=== PATIENT | female | born 1955 | race African-American/Black ===

== ENCOUNTER 2021-06-14 16:41 | Emergency (ER) | payer BC, OTHER ==
[~2021-06-14] VITALS: Ht 157.5 cm; Wt 70.0 kg
[2021-06-14 17:15] VITALS: BP 146/77
[2021-06-14] MEDS ORDERED: PROPARACAINE 0.5% OPHTH SOLUTION 15ML BOTTLE. OS ONE (18:15)
[2021-06-14] MEDS ORDERED: FLUORESCEIN OPHTH TEST STRIP. OS ONE (18:15)
--- NOTE | 2021-06-14 19:04 | PHYS DOC ---
Past Medical History Past Surgical History: No Surgical History General Adult EDM: Chief Complaint: EYE PROBLEMS HPI: HPI: Patient is a 65 year old female who presents with 1 day history of left eye pain. Patient states that she wore false eyelashes last night and remove them without issues, however this morning she had pain and watery discharge coming from her eye. She states it feels like there are "rocks in her eye." She denies headache, blind spots, or other visual changes. Patient has no other complaints at this time. Review of Systems: Review of Systems: ROS negative except as mentioned in HPI. Heart Score: C/O Chest Pain: No Current Medications: Current Medications Medications (Trade) Dose Ordered Sig/Armani Start Time Stop Time Status Last Admin Dose Admin Fluorescein Sodium (Ful-Ronel) 1 strip 1X ONCE 06/14/21 18:15 06/14/21 18:18 DC Proparacaine HCl (Alcaine) 1 drop 1X ONCE 06/14/21 18:15 06/14/21 18:18 DC Allergies: Allergies: Allergies Coded Allergies Type Severity Reaction Last Updated Verified No Known Drug Allergies 06/14/21 No Physical Exam: PE: Constitutional: Well developed, well nourished, no acute distress, non-toxic appearance. HENT: Normocephalic, atraumatic, bilateral external ears normal, oropharynx moist, nose normal. Eyes: PERRLA, EOMI, left eye copious amounts of watery discharge as well as some thicker, mucus-like discharge, conjunctiva injection, eyelid swelling; fluorescein stain with Jin lamp reveals inferior corneal abrasion without any retained foreign bodies. Right eye conjunctiva normal, no discharge. Cardiovascular: Heart rate regular rhythm, no murmur. Lungs & Thorax: Bilateral breath sounds clear to auscultation. Current Patient Data: Vital Signs: Vital Signs Date Time Temp Pulse Resp B/P (MAP) Pulse Ox O2 Delivery O2 Flow Rate FiO2 06/14/21 17:15 98.8 96 16 146/77 (100) 97 Room Air 98.8 Course & Med Decision Making: Course & Med Decision Making Pertinent Labs and Imaging studies reviewed. (See chart for details) Patient's presentation concerning for either retained foreign bodies or corneal abrasions. Jin lamp evaluation revealed an inferior corneal abrasion. Patient will be discharged home with antibiotic eyedrops as well as a referral for ophthalmology to follow-up. Patient understands and is comfortable with the discharge plan. Dragon Disclaimer: Dragon Disclaimer: This electronic medical record was generated, in whole or in part, using a voice recognition dictation system. Departure Departure Impression: Primary Impression: Corneal abrasion, left Qualified Codes: S05.02XA - Injury of conjunctiva and corneal abrasion without foreign body, left eye, initial encounter Disposition: HOME / SELF CARE / HOMELESS Condition: STABLE Referrals: UNKNOWN PCP NAME (PCP) Patient Instructions: Eye - Corneal Abrasion, [id number] Additional Instructions: Please call [phone] to schedule a follow-up appointment. Return to the emergency department if your pain worsens, if you develop a fever, or if you have any purulent discharge from your eye. Scripts Ciprofloxacin Hcl (CIPROFLOXACIN HCL) 2.5 Ml Drops 1 DROP OS QID for 7 Days, #[address] 1 drop in the left eye 4 times per day for 7 days. Prov: AMANDA BOYD 06/14/21 AMANDA BOYD Jun 14, 2021 19:04
[2021-06-14] MEDS ORDERED: CIPR2.5D2 OS (19:19)
== END 2021-06-14 19:23 | disposition home or self-care (01) ==
LOC: ER 16:41
DX: S05.02XA Injury of conjunctiva and corneal abrasion without foreign body, left eye, initial encounter (principal); X58.XXXA Exposure to other specified factors, initial encounter; Y93.89 Activity, other specified; Y92.89 Other specified places as the place of occurrence of the external cause; Y99.8 Other external cause status
CPT/HCPCS: 99283